=== PATIENT | male | born 1995 | race Caucasian/White ===

== ENCOUNTER 2017-08-22 14:13 | Emergency (ER) | payer OTHER ==
[~2017-08-22] VITALS: Ht 177.8 cm; Wt 70.3 kg
[2017-08-22 14:28] LABS: URINE BLOOD NEGATIVE (Negative); URINE CLARITY CLEAR; URINE COLOR YELLOW; URINE GLUCOSE-RANDOM NEGATIVE (Negative); URINE KETONES 2+ (Negative); URINE LEUKOCYTES NEGATIVE (Negative); URINE NITRITE NEGATIVE (Negative); URINE PROTEIN TRACE (Negative); URINE SPECIFIC GRAVITY >= 1.030 (1.005-1.030); URINE UROBILINOGEN 0.2 E.U./dl (0.2-1.0)
[2017-08-22 14:30] LABS: ICTOTEST (BILI CONFIRMATORY) Negative (Negative); URINE BILIRUBIN 2+ (Negative)
[2017-08-22 16:13] VITALS: BP 117/72
== END 2017-08-22 16:14 | disposition home or self-care (01) ==
LOC: M.ERS 14:13
PROVIDERS: Physician Assistant Surgical
DX: N50.89 Other specified disorders of the male genital organs (principal)

== ENCOUNTER 2019-08-21 17:43 | Emergency (ER) | payer OTHER ==
[~2019-08-21] VITALS: Ht 182.9 cm; Wt 74.8 kg
[2019-08-21 18:00] LABS: URINE BILIRUBIN NEGATIVE (Negative); URINE BLOOD NEGATIVE (Negative); URINE CLARITY CLEAR; URINE COLOR YELLOW; URINE GLUCOSE-RANDOM NEGATIVE (Negative); URINE KETONES NEGATIVE (Negative); URINE LEUKOCYTES-REFLEX NEGATIVE (Negative); URINE NITRITE-REFLEX NEGATIVE (Negative); URINE PROTEIN NEGATIVE (Negative); URINE SPECIFIC GRAVITY 1.025 (1.005-1.030); URINE UROBILINOGEN 0.2 E.U./dl (0.2-1.0)
[2019-08-21 19:17] VITALS: BP 136/79
== END 2019-08-21 19:18 | disposition home or self-care (01) ==
LOC: M.ERS 17:43
PROVIDERS: Nurse Practitioner Family
DX: A56.8 Sexually transmitted chlamydial infection of other sites (principal)